=== PATIENT | male | born 1995 | race Hispanic/Latino ===

== ENCOUNTER 2021-05-19 16:21 | Emergency (ER) | payer SELFPAY ==
[2021-05-20 11:22] LABS: SARS-CoV-2 PCR by NAA Not Detected (NotDetected)
== END 2021-05-19 16:55 | disposition home or self-care (01) ==
LOC: NAV ERS 16:21
DX: J20.9 Acute bronchitis, unspecified (principal); J06.9 Acute upper respiratory infection, unspecified; Z20.822 Contact with and (suspected) exposure to COVID-19
CPT/HCPCS: 87804; 99283; U0003; U0005